=== PATIENT | female | born 1955 | race Caucasian/White ===

== ENCOUNTER → 2017-01-04 | Day surgery (SDC) | payer MEDICARE, OTHER ==
[~2017-01-04] MED LIST: AMBIEN10 MG PO; LAMICTAL PO; LORTAB 7.5-5001 TAB PO; PHENERGAN25 MG PO; SUBOXONE; ULTRAM PO; WELLBUTRIN SR150 MG PO; ZOLOFT100 MG PO
--- NOTE | ~2017-01-04 | OR ---
Unit #: [id number] #: [id number] Patient: MIGUEL ANGEL PEREZ [id number] [address] [address] [id number] O MR#: [id number] NAME: MIGUEL ANGEL PEREZ ROOM: Date of Procedure: 01/04/2017 Admission Date: 01/04/2017 Surgeon: Spencer Jamison M.D. : 1955 Attending Physician: Spencer Jamison M.D. Primary Care Physician: Conor Michele M.D. OPERATIVE REPORT PREOPERATIVE DIAGNOSIS Right lower quadrant pain. POSTOPERATIVE DIAGNOSIS Right lower quadrant pain. PROCEDURE PERFORMED Colonoscopy to cecum. ANESTHESIA Monitored anesthesia care. FINDINGS The patient had a very long tortuous colon, but no abnormality was seen. SPECIMENS None. COMPLICATIONS None apparent. CONDITION The patient tolerated the procedure well. INDICATIONS FOR PROCEDURE The patient is a 61-year-old white female, who presents at this time for evaluation by colonoscopy. She has had right lower quadrant pain that is persistent. Her CT scan of the abdomen and pelvis showed no significant abnormality. She presents at this time for further evaluation and treatment. DESCRIPTION OF PROCEDURE After obtaining informed consent, the patient was brought to the endoscopy suite and after adequate monitored anesthesia care, had the colonoscope placed through the anus and advanced to the level of the cecum without difficulty with the lumen always in view. The cecum was normal as was the ileocecal valve. The ascending colon was normal as was the hepatic flexure, transverse colon, splenic flexure, descending colon, sigmoid colon, and rectum. The patient had a very longer tortuous colon. No diverticular disease was seen. The rectosigmoid and rectum were all within normal limits. On retroflexing in the rectum to the anorectal junction, there was no significant abnormality seen. The scope was Unit #: [id number] #: [id number] Patient: MIGUEL ANGEL PEREZ removed without difficulty. The patient tolerated the procedure well and went from the endoscopy suite to the recovery area in stable condition. RECOMMENDATIONS High-fiber diet, lots of liquids, tucks or wipes p.r.n. Call tomorrow to discuss results and further evaluation. Dictated by... Spencer Jamison M.D. SVEN/modl TD: 01/04/2017 16:51 JOB #: [id number] CC: [facility] Conor Michele M.D. OPERATIVE REPORT Page 1 of 1 X Spencer Jamison MD PROCEDURE OPERATIVE NOTE
== END | disposition home or self-care (01) ==
LOC: COPS 09:00
DX: R10.31 Right lower quadrant pain (principal); K63.89 Other specified diseases of intestine; Z90.710 Acquired absence of both cervix and uterus; F32.9 Major depressive disorder, single episode, unspecified; Z79.899 Other long term (current) drug therapy